=== PATIENT | male | born 1980 | race Caucasian/White ===

== ENCOUNTER 2025-02-24 07:05 | Outpatient (CLI) | payer BC, SELFPAY ==
--- NOTE | 2025-02-24 07:15 | MR_ITS ---
[address] [address] Phone:?[phone] Fax:?[phone] Referring Physician Information: Shashi Ceballos M.D. [address] [place] [id number] Phone:?[phone] Fax:?[phone] Patient:Casey Sweeney D.O.B:?1980 Sex:?Male Phone:?[phone] [facility] MRN:?[id number] Exam Date:?02/24/2025 EXAM: MRI of the LEFT KNEE without contrast CLINICAL: Left knee pain. Evaluate for medial and lateral compartment arthritis. COMPARISONS: X-rays dated 10/29/2024. TECHNICAL: Multiplanar multisequence MRI of the left knee was obtained. SEDATION: None. CONTRAST: None. FINDINGS: Ligaments: ACL: Intact and unremarkable. PCL: Intact and unremarkable. MCL: Intact and unremarkable. LCL: Intact and unremarkable. Posterolateral corner: The popliteus tendon, distal biceps femoris tendon, distal iliotibial band, and the popliteofibular ligament appear intact. Posteromedial corner: Semimembranosus, pes anserine tendons and posterior oblique ligament appear intact. Extensor mechanism: Patellar tendon: Intact, without tendinopathy. Quadriceps tendon: Intact, without tendinopathy. Retinacula: Medial and lateral retinacula are intact. Fat pads: Unremarkable infrapatellar Hoffa's, quadriceps and prefemoral fat pads. Patellofemoral joint: Patella: There is full-thickness chondral loss involving the lateral facet and patellar median ridge with mild subchondral reactive marrow edema/cystic change. Trochlea: There is full-thickness chondral loss involving the lateral trochlea with minimal adjacent subchondral reactive marrow edema. Segment of grade 2-3 chondral loss involves the central trochlea on sagittal series 6 images 16-18. Medial compartment: Medial meniscus: There is horizontal tearing throughout the posterior horn extending into the posterior root with obliquely oriented undersurface tearing also seen to involve the body segment. Medial cartilage: There is deep chondral fissuring and delamination involving the lateral aspect of the weightbearing medial femoral condyle on coronal series 8 image 20-22. Medial tibial plateau cartilage is maintained. Lateral compartment: Lateral meniscus: No evidence of discrete meniscal tear or meniscal displacement. Lateral cartilage: Small segment of high-grade/full-thickness chondral loss involves the medial aspect of the lateral tibial plateau on coronal series 8 image 22. Deep chondral fissuring also involves the the central aspect of the lateral tibial plateau. Small segment of grade 2 chondral loss involves the weightbearing lateral femoral condyle on coronal series 8 image 23-24. Knee joint: Effusion: Physiologic left knee effusion. Intra-articular bodies:?No convincing bodies identified. Popliteal cyst: None. Bones: No suspicious bone marrow signal alteration or fracture line. There is scattered degenerative peripheral marginal spurring involving all 3 compartments of the knee. IMPRESSION: 1. Tearing of the medial meniscus as above. 2. 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 3. No evidence of ligamentous injury or fracture. Z Electronically signed on 02/24/2025 9:46:00 AM by Randy Gillis D.O.
== END 2025-02-24 07:06 | disposition home or self-care (01) ==
LOC: MRI 07:06
PROVIDERS: Visit Provider Orthopaedic Surgery
DX: M25.562 Pain in left knee (principal); S83.242A Other tear of medial meniscus, current injury, left knee, initial encounter; M22.42 Chondromalacia patellae, left knee
CPT/HCPCS: 73721